=== PATIENT | female | born 1975 ===

== ENCOUNTER 2018-03-15 14:10 | Emergency (ER) | payer MEDICAID, OTHER ==
[2018-03-15 14:27] VITALS: BP 138/63
--- NOTE | 2018-03-15 15:15 | ER Document Report ---
ED Extremity Problem, Lower - General Chief Complaint: Thigh Pain Stated Complaint: RIGHT LEG PAIN Time Seen by Provider: 03/15/18 14:44 Mode of Arrival: Ambulatory TRAVEL OUTSIDE OF THE [place] IN LAST 30 DAYS: No - HPI Patient complains to provider of: Swelling Location: Thigh Occurred: - saturday Onset/Duration: Gradual Quality of pain: No pain Severity: None Pain Level: Denies Context: Other - thight Recent injury: No Exacerbated by: Nothing Relieved by: Nothing - Related Data Allergies/Adverse Reactions: No Known Allergies Allergy (Verified 03/15/18 14:12) Past Medical History - General Information source: Patient - Social History Smoking Status: Former Smoker Cigarette use (# per day): No Chew tobacco use (# tins/day): No Smoking Education Provided: No Frequency of alcohol use: None Drug Abuse: None Lives with: Family Family History: Reviewed & Not Pertinent Patient has suicidal ideation: No Patient has homicidal ideation: No - Past Medical History Cardiac Medical History: Reports: None Pulmonary Medical History: Reports: None EENT Medical History: Reports: None Neurological Medical History: Reports: None Endocrine Medical History: Reports: None Renal/ Medical History: Reports: None Malignancy Medical History: Reports: None GI Medical History: Reports: None Musculoskeletal Medical History: Reports None Skin Medical History: Reports None Psychiatric Medical History: Reports: None Traumatic Medical History: Reports: None Infectious Medical History: Reports: None Past Surgical History: Reports: Hx Orthopedic Surgery - carpal tunnel, Hx Tubal Ligation - Immunizations Immunizations up to date: Yes Hx Diphtheria, Pertussis, Tetanus Vaccination: Yes Review of Systems - Review of Systems Constitutional: No symptoms reported EENT: No symptoms reported Cardiovascular: No symptoms reported Respiratory: No symptoms reported Gastrointestinal: No symptoms reported Genitourinary: No symptoms reported Female Genitourinary: No symptoms reported Musculoskeletal: Other - Patient states that the muscle on the right vastus intermedius is larger than the left no tenderness no redness. denies: Muscle pain, Muscle stiffness Skin: No symptoms reported Hematologic/Lymphatic: No symptoms reported Neurological/Psychological: No symptoms reported -: Yes All other systems reviewed and negative Physical Exam - Vital signs Vitals: Temp Pulse Resp BP Pulse Ox 97.9 F 88 18 138/63 H 99 03/15/18 14:25 03/15/18 14:25 03/15/18 14:25 03/15/18 14:25 03/15/18 14:25 Interpretation: Normal - General General appearance: Appears well, Alert - HEENT Head: Normocephalic, Atraumatic Eyes: Normal Pupils: PERRL - Respiratory Respiratory status: No respiratory distress Chest status: Nontender Breath sounds: Normal Chest palpation: Normal - Cardiovascular Rhythm: Regular Heart sounds: Normal auscultation Murmur: No - Abdominal Inspection: Normal Distension: No distension Bowel sounds: Normal Tenderness: Nontender Organomegaly: No organomegaly - Back Back: Normal, Nontender - Extremities General upper extremity: Normal inspection, Nontender, Normal color, Normal ROM , Normal temperature General lower extremity: Normal inspection, Nontender, Normal color, Normal ROM , Normal temperature, Normal weight bearing. No: Siomara's sign Thigh: Other - Patient states that the vastus intermedius looks different on the right than on the left there is no tenderness no swelling no redness no warmth. 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 Patient also complains of tingling in the right foot. She denies any loss of control of bowel or bladder, she denies any pain discomfort tenderness redness inflammation to this area. Both muscles are soft to palpation no tenderness to palpation. Patient was instructed to follow-up with her primary doctor for further evaluation. - Vital Signs Vital signs: Temp Pulse Resp BP Pulse Ox 97.9 F 88 18 138/63 H 99 03/15/18 14:25 03/15/18 14:25 03/15/18 14:25 03/15/18 14:25 03/15/18 14:25 Discharge - Discharge Clinical Impression: Concern 4 tingling to the right foot, Concern for shape of vastas intermedius Condition: Stable Disposition: HOME, SELF-CARE Additional Instructions: Area of your thigh that you are concerned about is not red, it is not tender, it is not warm to the touch, in it this time it is not something that will be treated in the emergency room. You state there is no pain to this area at this time. You do have tingling in the toe of the right foot. We have discussed different causes for tingling in the toes. Please keep your primary care doctor appointment and have them do further testing concerning possible diabetes or nerve damage in your toes. You state to have blood work scheduled for 28 March to check this. If you feel this area is getting worse at any time please come back to the emergency room. If you do if it is develop any redness further swelling pain or tenderness feel free to come back to the emergency room at this time the area is very soft if it becomes very hard return to the emergency room. FOLLOW-UP CARE: If you have been referred to a physician for follow-up care, call the physician s office for an appointment as you were instructed or within the next two days. If you experience worsening or a significant change in your symptoms, notify the physician immediately or return to the Emergency Department at any time for re-evaluation. Forms: Elevated Blood Pressure Referrals: KALLI BROOKS MD [ACTIVE STAFF] - Follow up as needed
== END 2018-03-15 15:27 | disposition home or self-care (01) ==
LOC: ER 14:10
DX: R20.2 Paresthesia of skin (principal); Z98.51 Tubal ligation status
CPT/HCPCS: 99283